=== PATIENT | male | born 1975 | race Hispanic/Latino ===

== ENCOUNTER 2018-09-27 17:57 | Observation (INO) | payer OTHER, SELFPAY ==
[2018-09-27 18:49] LABS: Potassium 3.9 mmol/L (3.5-5.1)
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
[2018-09-27] MEDS ORDERED: GLUCAGON 1 MG/VIAL IM PRN (19:12)
[2018-09-27] MEDS ORDERED: D50W 25 GM/50 ML SYRINGE IV PRN (19:12)
[2018-09-27] MEDS ORDERED: ONDANSETRON 4 MG/2 ML VIAL IV PRN (19:12)
[2018-09-27] MEDS ORDERED: ACETAMINOPHEN 500 MG TAB PO PRN (19:12)
[2018-09-27] MEDS ORDERED: MORPHINE 4 MG/ML SYR IV PRN (19:12)
--- NOTE | 2018-09-27 19:59 | RAD REPORT ---
EXAM DESCRIPTION: RAD - Femur Right - 09/27/2018 7:49 pm CLINICAL HISTORY: Right leg pain FINDINGS: No acute fracture is seen. Intramedullary lizbeth and compression screws affix old fractures.
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
[2018-09-27] MEDS ORDERED: MORPHINE 4 MG/ML SYR ONE (20:52)
[2018-09-27] MEDS: INSULIN -REGULAR HUMAN 50 UNIT/0.5 ML ML SQ SCH (21:00)
[2018-09-27] MEDS ORDERED: HYDROMORPHONE HCL 1 MG/ML INJ IV ONE (22:42)
[2018-09-28] MEDS ORDERED: HYDROMORPHONE HCL 1 MG/ML INJ IV ONE (03:48)
[2018-09-28 05:55] LABS: Potassium 4.1 mmol/L (3.5-5.1)
[2018-09-28] MEDS ORDERED: HYDROMORPHONE HCL 1 MG/ML INJ IV PRN (06:00)
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
[2018-09-28] MEDS: INSULIN -REGULAR HUMAN 50 UNIT/0.5 ML ML SQ SCH ×4 (07:30→21:13)
[2018-09-28] MEDS ORDERED: hydroCHLOROthiazide 25 MG TAB PO SCH ×2 (09:00)
[2018-09-28] MEDS ORDERED: HOME MED 1 EA UNK (Lisinopril/Hydrochlorothiazide [Zestoretic 20-25 Mg Tablet] 1 EACH) PO SCH (09:00)
[2018-09-28] MEDS: HOME MED 1 EA UNK (Dapagliflozin Propanediol [Farxiga] 10 MG) PO SCH (09:00)
[2018-09-28] MEDS ORDERED: CODEINE 30MG/APAP 300MG TAB PO PRN (09:22)
[2018-09-28] MEDS: GLIMEPIRIDE 2 MG TABLET PO SCH ×2 (09:39→18:04)
[2018-09-28] MEDS: LISINOPRIL 20 MG TAB PO SCH (09:39)
[2018-09-28] MEDS: hydroCHLOROthiazide 25 MG TAB PO SCH (09:39)
[2018-09-28] MEDS: ATENOLOL 50 MG TAB PO SCH (09:41)
[2018-09-28] MEDS: HYDROMORPHONE HCL 1 MG/ML INJ IV PRN ×4 (10:50→22:02)
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
[2018-09-29] MEDS: HYDROMORPHONE HCL 1 MG/ML INJ IV PRN ×6 (01:13→20:18)
[2018-09-29 07:04] LABS: Absolute Lymphocytes (CBC) 1.3 K/uL (0.7-4.9); Absolute Monocytes 0.6 K/uL (0.1-1.3); Absolute Neutrophil 4.1 K/uL (1.8-8.0); Basophils % 0.7 % (0-1.3); Eosinophils % 1.4 % (0-4.4); Hematocrit 41.4 % (39.6-49.0); Lymphocytes % 21.2 % (15.3-44.8); MPV 8.7 fL (7.6-11.3); Monocytes % 9.5 % (3.3-12.3)
[2018-09-29 07:18] LABS: ALT/SGPT 27 U/L (12-78); AST/SGOT 34 U/L (15-37); Albumin 3.5 g/dL (3.4-5.0); Alkaline Phosphatase 59 U/L (45-117); BUN Blood Urea Nitrogen 20 mg/dL (7-18); Bicarbonate 28 mmol/L (21-32); Bilirubin Total 0.5 mg/dL (0.2-1.0); Glucose Level 119 mg/dL (74-106); Magnesium 2.2 mg/dL (1.8-2.4); Phosphorus 3.5 mg/dL (2.5-4.9); Potassium 4.1 mmol/L (3.5-5.1); Protein, Total 6.9 g/dL (6.4-8.2); Sodium Level 137 mmol/L (136-145); Troponin I < 0.02 ng/mL (0.0-0.045)
[2018-09-29] MEDS: INSULIN -REGULAR HUMAN 50 UNIT/0.5 ML ML SQ SCH ×4 (07:30→20:19)
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
[2018-09-29] MEDS: GLIMEPIRIDE 2 MG TABLET PO SCH ×2 (08:20→16:50)
[2018-09-29] MEDS: hydroCHLOROthiazide 25 MG TAB PO SCH (08:22)
[2018-09-29] MEDS: ATENOLOL 50 MG TAB PO SCH (08:22)
[2018-09-29] MEDS: LISINOPRIL 20 MG TAB PO SCH (08:22)
[2018-09-29] MEDS: HOME MED 1 EA UNK (Dapagliflozin Propanediol [Farxiga] 10 MG) PO SCH (08:23)
--- NOTE | 2018-09-29 08:50 | RAD REPORT ---
EXAM DESCRIPTION: Sabrina Single View09/29/2018 6:30 am CLINICAL HISTORY: Chest pain COMPARISON: September 27 FINDINGS: An area of subsegmental atelectasis is present within the left base. The right lung appear s clear. The heart is normal size
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
--- NOTE | 2018-09-29 16:12 | RAD REPORT ---
EXAM DESCRIPTION: RAD - Shoulder Right 2 View - 09/29/2018 3:58 pm CLINICAL HISTORY: Right shoulder pain FINDINGS: The distal right clavicle is elevated. The right acromioclavicular and coracoclavicular sp aces are widened. This is consistent with ligamentous injuries. The age is indeterminate and should b e correlated clinically No fracture is seen
[2018-09-29 21:30] VITALS: O2SAT 96
[2018-09-30] MEDS: HYDROMORPHONE HCL 1 MG/ML INJ IV PRN ×4 (00:05→10:20)
[2018-09-30] MEDS: INSULIN -REGULAR HUMAN 50 UNIT/0.5 ML ML SQ SCH ×2 (07:30→11:30)
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
[2018-09-30] MEDS: HOME MED 1 EA UNK (Dapagliflozin Propanediol [Farxiga] 10 MG) PO SCH (09:00)
[2018-09-30] MEDS: ATENOLOL 50 MG TAB PO SCH (09:10)
[2018-09-30] MEDS: GLIMEPIRIDE 2 MG TABLET PO SCH (09:11)
[2018-09-30] MEDS: hydroCHLOROthiazide 25 MG TAB PO SCH (09:11)
[2018-09-30] MEDS: LISINOPRIL 20 MG TAB PO SCH (09:12)
[2018-09-30 12:52] VITALS: BP 111/55; TEMP 98.1
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
== END 2018-09-30 13:00 | disposition home or self-care (01) ==
LOC: ER 17:57 → ERHOLD 19:19 → 4TH 20:16
PROVIDERS: ADMIT Surgery; ATTEND Surgery
DX: S49.81XA Other specified injuries of right shoulder and upper arm, initial encounter (principal); S40.012A Contusion of left shoulder, initial encounter; S20.219A Contusion of unspecified front wall of thorax, initial encounter; S30.1XXA Contusion of abdominal wall, initial encounter; M79.651 Pain in right thigh; V69.88XA Occupant (driver) (passenger) of heavy transport vehicle injured in other specified transport accidents, initial encounter; Y92.410 Unspecified street and highway as the place of occurrence of the external cause; E11.9 Type 2 diabetes mellitus without complications; I10 Essential (primary) hypertension
CPT/HCPCS: 36415; 70450; 71045; 71260; 72125; 74177; 80048; 80053; 82962; 83735; 84100; 84484; 85025; 86850; 86900; 86901; 97116; 97163; 97530; G0378; J1170; Q9967

== ENCOUNTER 2024-09-27 13:45 | Observation (INO) | payer BC ==
[2024-09-27] MEDS ORDERED: NA CHLORIDE 0.9% 2,000 ML ONE (13:49)
[2024-09-27 14:33] LABS: Absolute Lymphocytes (CBC) 0.4 K/uL (0.7-4.9); Absolute Monocytes 0.8 K/uL (0.1-1.3); Absolute Neutrophil 6.7 K/uL (1.8-8.0); Basophils % 0.5 % (0-1.3); Eosinophils % 0.4 % (0-4.4); Hematocrit 43.3 % (39.6-49.0); Hemoglobin 14.8 g/dL (13.6-17.9); Lymphocytes % 4.7 % (15.3-44.8); MCH 27.5 pg (27.0-35.0); MCHC 34.2 g/dL (32.0-36.0); MCV 80.6 fL (80-100); Monocytes % 9.6 % (3.3-12.3); Neutrophils % 84.8 % (41.7-73.7); Platelets 199 thou/uL (152-406); RBC Red Blood Cell Count 5.37 M/uL (4.33-5.43); Red Cell Distribution Width 14.8 % (12.1-15.2)
[2024-09-27 14:48] LABS: PT Prothrombin Time 12.8 SECONDS (9.4-12.5); Protime INR 1.22
[2024-09-27 14:49] LABS: Albumin 2.9 g/dL (3.4-5.0); Albumin/Globulin Ratio 0.6 (1.1-1.8); Bilirubin Total 0.8 mg/dL (0.2-1.0); Globulin 4.7 g/dL (2.3-3.5); Protein, Total 7.6 g/dL (6.4-8.2)
--- NOTE | 2024-09-27 15:03 | RAD REPORT ---
EXAM: Chest Single View HISTORY: hypotension COMPARISON: 09/29/2018 FINDINGS: LUNGS/PLEURA: The lungs are clear. No pleural effusions or pneumothorax. No pulmonary edema. MEDIASTINUM: The mediastinal silhouette is within normal limits. CARDIAC: The cardiac silhouette is within normal limits. UPPER ABDOMEN: No significant abnormality. BONES: No acute abnormality. LINES/TUBES/OTHER: N/A IMPRESSION: No evidence of acute cardiopulmonary disease.
--- NOTE | 2024-09-27 15:44 | RAD REPORT ---
EXAM: Angio Aorta For Dissection CLINICAL INDICATION: Male, 49 years back pain, hypotension TECHNIQUE: CTA of the aorta was obtained including the chest, abdomen and pelvis, with IV contrast, a s per department protocol. Axial, sagittal and coronal reconstructions were obtained. Post-processing was applied at the acquisition scanner with concurrent physician supervision which in cludes 3D reconstructions, MIPs, volume rendered images and/or shaded surface rendering. One or more of the following dose reduction techniques were used: Automated exposure control, adjustment of the mA and/or kV according to the patient size, and/or iterative reconstruction. Unless otherwise specified, incidental findings do not require dedicated imaging follow-up. [id number]. COMPARISON: No prior exam. FINDINGS: Chest: LOWER NECK: Visualized thyroid gland and soft tissues are normal. LUNGS AND AIRWAYS: Airways are clear. No evidence of airspace or interstitial process.No suspicious a nd/or stable pulmonary nodules. PLEURA: No pleural effusion. No pneumothorax. Hemidiaphragms are normally positioned. MEDIASTINUM AND LYMPH NODES: No mediastinal mass or fluid collection. Normal size mediastinal, hilar, and axillary lymph nodes. THORACIC AORTA: No thoracic aortic aneurysm. PULMONARY ARTERIES: Caliber is within normal limits. HEART: Normal heart size. No coronary calcifications.Trace pericardial effusion. Abdomen/Pelvis UPPER GI: No significant abnormality. LIVER: Hepatomegaly with steatosis. GALLBLADDER/BILE DUCTS: No biliary ductal dilatation.? PANCREAS: No mass, ductal dilation, or lizz-pancreatic fluid. SPLEEN: Unremarkable. ADRENALS: No adrenal masses. KIDNEYS AND URETERS: Normal size and contour. No hydronephrosis. ABDOMINAL AORTA AND OTHER VESSELS: Normal caliber aorta and IVC. IVC filter. PERITONEUM: No abnormal free fluid. No free air. LYMPH NODES: No pathologic lymphadenopathy. ABDOMINAL WALL: Right lateral abdominal wall hernia containing portions of the colon. No complicating features. . SMALL BOWEL/COLON: Small bowel has normal course and caliber. No colonic wall thickening or pericolon ic inflammatory changes.Normal appendix. URINARY BLADDER: Underdistended but grossly unremarkable. REPRODUCTIVE ORGANS: No pathologic process. MUSCULOSKELETAL: Multilevel degenerative changes in the spine. No acute fracture. Grade 2 anterolisth esis of L5 on S1. Bilateral pars defects. Intramedullary lizbeth and screw in the right femur. Pubic symphysis plate and screw fixation. Left-sided SI joint screw. Remote rib fractures. ADDITIONAL FINDINGS: None. IMPRESSION: No aortic aneurysm or dissection. No acute abnormalities in the chest, abdomen, or pelvis. Incidental findings as noted above.
--- NOTE | 2024-09-27 15:57 | ER ---
Nurse's Notes [facility] Name: Ye Barajas Age: 49 yrs Sex: Male : 1975 Arrival Date: 09/27/2024 Time: 13:45 Bed 3 Private MD: Diagnosis: Hypotension, unspecified Presentation: 09/27 13:46 Chief complaint: EMS states: was transported from wound healing for low BP. Coronavirus iw screen: At this time, the client does not indicate any symptoms associated with coronavirus-19. Ebola Screen: No symptoms or risks identified at this time. Initial Sepsis Screen: Does the patient meet any 2 criteria? Altered Mental Status. Does the patient have a suspected source of infection? No. Patient's initial sepsis screen is negative. Risk Assessment: Do you want to hurt yourself or someone else? Patient reports no desire to harm self or others. Onset of symptoms was September 27, 2024. 13:46 Method Of Arrival: Wheelchair iw 13:46 Acuity: SEYMOUR 2 iw Triage Assessment: 16:43 General: Appears in no apparent distress. Behavior is calm, cooperative. iw Historical: - Allergies: 13:54 No Known Allergies; ss - PMHx: 13:47 Diabetes; Hypertension; iw - Family history:: not pertinent. - Hospitalizations: : No recent hospitalization is reported. Screenin:28 [facility] ED Fall Risk Assessment (Adult) History of falling in the last 3 months, iw including since admission No falls in past 3 months (0 pts) Confusion or Disorientation Yes (5 pts) Intoxicated or Sedated No (0 pts) Impaired Gait No (0 pts) Mobility Assist Device Used No (0 pt) Altered Elimination No (0 pt) Score/Fall Risk Level 3 or more points = High Risk Oriented to surroundings, Maintained a safe environment, Hourly rounding (assess needs \T\ fall precautionary measures) done. Abuse screen: Denies threats or abuse. Nutritional screening: No deficits noted. Tuberculosis screening: No symptoms or risk factors identified. Assessment: 14:17 Reassessment: Patient appears in no apparent distress at this time. iw 14:28 Reassessment: pt on cell phone texting. iw Vital Signs: 13:47 BP 79 / 49; Pulse 74; Resp 14; Pulse Ox 96% on R/A; iw 13:48 Weight 149.69 kg; Height 6 ft. 3 in. ; ss 13:56 Temp 97.7(O); ss 14:16 BP 92 / 52; Pulse 73; Resp 17; Temp 97.9; Pulse Ox 96% on R/A; zm 14:39 BP 103 / 55; Pulse 72; Resp 16; Pulse Ox 100% on R/A; iw 13:48 Body Mass Index 41.25 (149.69 kg, 190.5 cm) ED Course: 13:46 Patient arrived in ED. iw 13:47 Tashi Orozco MD is Attending Physician. rn 13:47 Triage completed. iw 13:50 First set of blood cultures drawn by me. zm 13:53 Xin Valdez, BRITT is Primary Nurse. iw 14:05 Initial lab(s) drawn, by me, sent to lab. Inserted saline lock: 18 gauge in right zm wrist, using aseptic technique. Blood collected. Flushed with 10 mL NS. 14:05 Second set of blood cultures drawn by me. zm 14:13 Blood Culture Adult (2) Sent. zm 14:13 CBC with Diff Sent. zm 14:13 CMP Sent. zm 14:13 Lactate w/ 2H reflex if indic. Sent. zm 14:13 Protime (+inr) Sent. zm 14:13 Ptt, Activated Sent. zm 14:17 Patient has correct armband on for positive identification. Bed in low position. Side iw rails up X2. 14:43 Chest Single View XRAY In Process Unspecified. EDMS 15:26 CT Aorta for Dissection In Process Unspecified. EDMS 15:56 Maren Butts MD is Hospitalizing Provider. rn Administered Medications: 14:10 Drug: NS 0.9% IV 1000 ml IV at 1000 ml once; to be given as a bolus over 60 minutes iw Route: IV; Rate: 1000 ml; Site: right wrist; 15:15 Follow up: IV Status: Completed infusion iw 15:03 Drug: NS 0.9% IV 1000 ml IV at 1000 ml once; to be given as a bolus over 60 minutes iw Route: IV; Rate: 1000 ml; Site: right wrist; 16:10 Follow up: IV Status: Completed infusion iw Medication: 14:29 VIS not applicable for this client. iw Point of Care Testing: Blood Glucose: 13:54 Blood Glucose: 240 mg/dL; iw Ranges: Outcome: 15:56 Decision to Hospitalize by Provider. rn 17:33 Patient left the ED. eb Signatures: Dispatcher [employer] Xin Moreira RN Tashi Hameed MD MD rn Blanchard, Shelby, RN RN ss Botello, Elizabeth eb Martinez, Zaina zm
--- NOTE | 2024-09-27 15:57 | EDPHYS ---
Physician Documentation [facility] Name: Ye Barajas Age: 49 yrs Sex: Male : 1975 Arrival Date: 09/27/2024 Time: 13:45 Bed 3 Private MD: ED Physician Tashi Orozco HPI: 09/27 14:35 This 49 yrs old Male presents to ER via Wheelchair with complaints of Near rn Syncope. 14:35 The patient has experienced near-syncope. Onset: The symptoms/episode began/occurred rn today. Associated injury: The patient did not suffer any apparent associated injury. Current symptoms: Generalized weakness. The patient has not experienced similar symptoms in the past. Patient reports near syncopal episode, was here for wound care evaluation, sent by Dr. Caruso after noted to be hypotensive and diaphoretic. Patient reports has been having low back pain for 2 weeks now without focal trauma or fall. No abdominal pain. No vomiting or diarrhea. No chest pain or shortness of breath. No fever. Denies IV drug use. Does report constipation and decrease in urination.. Historical: - Allergies: 13:54 No Known Allergies; ss - PMHx: 13:47 Diabetes; Hypertension; iw - Family history:: not pertinent. - Hospitalizations: : No recent hospitalization is reported. ROS: 14:35 Constitutional: Negative for fever, chills, and weight loss, Cardiovascular: Negative rn for chest pain, palpitations, and edema, Respiratory: Negative for shortness of breath, cough, wheezing, and pleuritic chest pain, Abdomen/GI: Negative for abdominal pain, positive for constipation Back: Positive for back pain : Negative for injury, bleeding, discharge, and swelling, MS/Extremity: Negative for injury and deformity, Skin: Negative for injury, rash, and discoloration, Neuro: Positive for generalized weakness and malaise Exam: 14:35 Constitutional: This is a well developed, well nourished patient who is awake, slow to rn respond and diaphoretic ENT: Dry mucous membranes Cardiovascular: Regular rate and rhythm. No pulse deficits. Respiratory: No increased work of breathing, no retractions or nasal flaring. Abdomen/GI: Soft, non-tender, no masses Back: No spinal tenderness Skin: No cyanosis MS/ Extremity: Pulses equal, no cyanosis Neuro: Awake and alert, GCS 15, equal strength throughout, normal sensation Vital Signs: 13:47 BP 79 / 49; Pulse 74; Resp 14; Pulse Ox 96% on R/A; iw 13:48 Weight 149.69 kg; Height 6 ft. 3 in. ; ss 13:56 Temp 97.7(O); ss 14:16 BP 92 / 52; Pulse 73; Resp 17; Temp 97.9; Pulse Ox 96% on R/A; zm 14:39 BP 103 / 55; Pulse 72; Resp 16; Pulse Ox 100% on R/A; iw 13:48 Body Mass Index 41.25 (149.69 kg, 190.5 cm) ss MDM: 13:47 Medical Screening Exam initiated rn 15:53 Differential Diagnosis: aortic aneurysm, cardiac arrhythmia, idiopathic syncope, rn vasovagal episode, Dehydration, DKA, hyperglycemia, medication side effect. Data reviewed: vital signs, nurses notes, lab test result(s), EKG, radiologic studies, CT scan, plain films, and as a result, I will admit patient. Consideration of Admission/Observation Patient was admitted/placed on observation. Escalation of care including admission/observation considered. Care significantly affected by the following chronic conditions: Diabetes, Hypertension. Counseling: I had a detailed discussion with the patient and/or guardian regarding the historical points, exam findings, and any diagnostic results supporting the discharge/admit diagnosis, lab results, radiology results, the need for further work-up and treatment in the hospital. Response to treatment: the patient's symptoms have mildly improved after treatment, and as a result, I will admit patient. ED course: I personally spent 35 minutes engaged in work directly related to the individual patient's care. This does not include any time spent performing procedures. The patient has been deemed critically ill because of hypotension requiring fluid resuscitation, as well as organization of admission to hospital. 09/27 13:48 Order name: Blood Culture Adult (2) rn 09/27 13:48 Order name: CBC with Diff; Complete Time: 14:35 rn 09/27 13:48 Order name: CMP; Complete Time: 15:00 rn 09/27 13:48 Order name: Lactate w/ 2H reflex if indic.; Complete Time: 15:00 rn 09/27 13:48 Order name: Protime (+inr); Complete Time: 15:00 rn 09/27 13:48 Order name: Ptt, Activated; Complete Time: 15:00 rn 09/27 13:48 Order name: Urinalysis w/ reflexes rn 09/27 13:53 Order name: SARS RAPID rn 09/27 13:53 Order name: Flu rn 09/27 16:12 Order name: Basic Metabolic Panel EDMS 09/27 16:12 Order name: Basic Metabolic Panel EDMS 09/27 16:12 Order name: Basic Metabolic Panel EDMS 09/27 16:12 Order name: Basic Metabolic Panel EDMS 09/27 16:12 Order name: Basic Metabolic Panel EDMS 09/27 16:12 Order name: Basic Metabolic Panel EDMS 09/27 16:12 Order name: Basic Metabolic Panel EDMS 09/27 16:12 Order name: Basic Metabolic Panel EDMS 09/27 16:12 Order name: CBC with Automated Diff EDMS 09/27 16:12 Order name: CBC with Automated Diff EDMS 09/27 16:12 Order name: CBC with Automated Diff EDMS 09/27 16:12 Order name: CBC with Automated Diff EDMS 09/27 16:12 Order name: CBC with Automated Diff EDMS 09/27 16:12 Order name: CBC with Automated Diff EDMS 09/27 16:12 Order name: CBC with Automated Diff EDMS 09/27 16:12 Order name: CBC with Automated Diff EDMS 09/27 16:12 Order name: Magnesium EDMS 09/27 16:12 Order name: Magnesium EDMS 09/27 16:12 Order name: Magnesium EDMS 09/27 16:12 Order name: Magnesium EDMS 09/27 16:12 Order name: Magnesium EDMS 09/27 16:12 Order name: Magnesium EDMS 09/27 16:12 Order name: Magnesium EDMS 09/27 16:12 Order name: Magnesium EDMS 09/27 16:58 Order name: Glucose, Ancillary Testing EDMS 09/27 13:48 Order name: Chest Single View XRAY; Complete Time: 15:45 rn 09/27 13:53 Order name: CT Aorta for Dissection; Complete Time: 15:45 rn 09/27 13:48 Order name: EKG; Complete Time: 13:48 rn 09/27 13:48 Order name: Accucheck; Complete Time: 14:13 rn 09/27 13:48 Order name: Cardiac monitoring; Complete Time: 14:13 rn 09/27 13:48 Order name: EKG - Nurse/Tech; Complete Time: 14:13 rn 09/27 13:48 Order name: IV Saline Lock - Large Bore; Complete Time: 14:12 rn 09/27 13:48 Order name: Labs collected and sent; Complete Time: 14:12 rn 09/27 13:48 Order name: O2 Per Protocol; Complete Time: 14:13 rn 09/27 13:48 Order name: O2 Sat Monitoring; Complete Time: 14:13 rn 09/27 13:48 Order name: Vital Signs; Complete Time: 14:13 rn Administered Medications: 14:10 Drug: NS 0.9% IV 1000 ml IV at 1000 ml once; to be given as a bolus over 60 minutes iw Route: IV; Rate: 1000 ml; Site: right wrist; 15:15 Follow up: IV Status: Completed infusion iw 15:03 Drug: NS 0.9% IV 1000 ml IV at 1000 ml once; to be given as a bolus over 60 minutes iw Route: IV; Rate: 1000 ml; Site: right wrist; 16:10 Follow up: IV Status: Completed infusion iw Point of Care Testing: Blood Glucose: 13:54 Blood Glucose: 240 mg/dL; iw Ranges: Critical Glucose Levels:Adult <50 mg/dl or >400 mg/dl <40 mg/dl or >180 mg/dl Disposition Summary: 09/27/24 15:56 Hospitalization Ordered Notes: Hospitalization Status: Inpatient Admission rn Provider: Maren Butts rn Location: Telemetry/[facility] (Inpatient) rn Condition: Stable rn Problem: new rn Symptoms: have improved rn Bed/Room Type: Standard rn Room Assignment: 411(09/27/24 16:24) emeterio Diagnosis - Hypotension, unspecified rn Forms: - Medication Reconciliation Form rn - SBAR form rn - 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 Total time: 35 minutes rn Signatures: Dispatcher [employer] Xin Moreira RN Tashi Hameed MD MD rn Blanchard, Shelby RN Ye Garner, RN RN emeterio Corrections: (The following items were deleted from the chart) 16:24 15:56 rn emeterio
[2024-09-27 16:07] LABS: SARS-CoV-2 Antigen CONTROL BLUE LINE VIS/BG OK; SARS-CoV-2 Antigen Rapid Res Negative (Negative)
[2024-09-27] MEDS ORDERED: ACETAMINOPHEN 500 MG TAB PO PRN ×2 (16:08)
[2024-09-27] MEDS ORDERED: ONDANSETRON 4 MG/2 ML VIAL IV PRN (16:08)
[2024-09-27] MEDS ORDERED: GLUCAGON 1 MG/VIAL IM PRN ×2 (16:21)
[2024-09-27] MEDS ORDERED: D10W 125 ML IV PRN ×2 (16:21)
[2024-09-27] MEDS: INSULIN REGULAR (HUMAN) 100 UNIT/ML SQ SCH (16:30)
[2024-09-27 17:38] VITALS: BMI 5845.0
--- NOTE | 2024-09-27 17:39 | P.HP ---
Certification for Inpatient Patient admitted to: Observation With expected LOS: <2 Midnights Practitioner: I am a practitioner with admitting privileges, knowledge of patient current condition, hospital course, and medical plan of care. Services: Services provided to patient in accordance with Admission requirements found in Title 42 Section 412.3 of the Code of Federal Regulations Patient History Date of Service: 09/27/24 Reason for admission: Dizziness History of Present Illness: 49-year-old male with history of type 2 diabetes, essential hypertension, chronic back pain, who was seen at the wound care clinic and noted to be dizzy and diaphoretic so sent to the ER for evaluation. Per patient, he had been having severe back pain for the past 3 days so has been mostly in bed. Upon going to the wound care clinic, he was feeling dizzy while ambulating so at the clinic was in a wheelchair and received wound care on the left toe. During wound care he was still feeling diaphoretic and dizzy so was sent to the ER. No complaints currently. Of note, his SBP was in the 80s to 90s at the wound care clinic. Patient currently asymptomatic while lying down, has no complaints. Allergies No Known Allergies Allergy (Unverified 09/27/18 20:05) Home medications list reviewed: Yes Home Medications: Dapagliflozin Propanediol [Farxiga] 10 mg PO DAILY 09/27/18 Glimepiride 4 mg PO BIDWM 09/27/18 Lisinopril/Hydrochlorothiazide [Zestoretic 20-25 mg Tablet] 1 each PO DAILY 09/27/18 Metformin HCl 1,000 mg PO BIDWM 09/27/18 atenoloL [Atenolol] 100 mg PO DAILY 09/27/18 - Past Medical/Surgical History Diabetic: Yes -: hypertension -: niddm -: femur fracture and repair - Social History Alcohol use: No CD- Drugs: No Caffeine use: Yes Review of Systems 10-point ROS is otherwise unremarkable Physical Examination - Physical Exam General: Alert, In no apparent distress, Oriented x3 HEENT: Atraumatic, Normocephalic Neck: Supple, 2+ carotid pulse no bruit Respiratory: Clear to auscultation bilaterally Cardiovascular: No edema Gastrointestinal: Normal bowel sounds, Soft and benign, Non-distended Musculoskeletal: No clubbing, No swelling, No erythema Neurological: Normal gait, Normal speech, Normal strength at 5/5 x4 extr - Studies Laboratory Data (last 24 hrs) 09/27/24 09/27/24 09/27/24 14:05 14:05 14:05 WBC 7.80 Hgb 14.8 Hct 43.3 Plt Count 199 PT 12.8 H INR 1.22 APTT 34.0 Sodium 133 L Potassium 4.0 BUN 35 H Creatinine 1.52 H Glucose 239 H Total Bilirubin 0.8 AST 53 H ALT 66 H Alkaline Phosphatase 101 Microbiology Data (last 24 hrs): 09/27/24 15:30 Nasopharnyx Influenza Type A Antigen Screen - Final 09/27/24 15:30 Nasopharnyx Influenza Type B Antigen Screen - Final Assessment and Plan - Plan 1. Dizziness, presyncope, secondary to orthostasis -Per patient, has been bedbound for the past 3 days due to back pain and with limited p.o. intake -At the wound care clinic today, also noted to be hypotensive with SBP in the 90s -Monitor on telemetry -On IV fluids -Check orthostatic vital signs -If symptoms improve tomorrow, and no arrhythmia noted on telemetry, will likely discharge 2. BRANDY secondary to prerenal azotemia -Creatinine currently at 1.5 -On IV fluids 3. Type 2 diabetes -Sliding scale insulin 4. DVT prophylaxis -Subcu Lovenox 5. Disposition: Likely discharge home tomorrow if vital stable and no arrhythmia noted on telemetry Patient is full code - Advance Directives Does patient have a Living Will: No Does patient have a Durable POA for Healthcare: No
[2024-09-27] MEDS: NA CHLORIDE 0.9% 1,000 ML IV SCH (17:51)
[2024-09-27 21:12] VITALS: O2SAT 96
[2024-09-27] MEDS ORDERED: HYDROMORPHONE HCL 1 MG/ML INJ IV PRN (22:15)
[2024-09-27] MEDS: HYDROMORPHONE HCL 1 MG/ML INJ IV PRN (22:20)
[2024-09-27] MEDS: MELATONIN 3 MG TABLET PO SCH (22:20)
[2024-09-27 22:55] LABS: Specific Gravity > 1.030 (1.005-1.030); Sqamous Epithelial None Seen /HPF (None Seen); Urine Bacteria None Seen /HPF (<20); Urine Bilirubin NEGATIVE (Negative); Urine Blood Trace (Negative); Urine Clarity Clear (Clear); Urine Color Light-Yellow (Yellow); Urine Culture Reflex Order NOT NEEDED; Urine Glucose 4+ (Over) (Negative); Urine Ketones TRACE (Negative); Urine Microscopic Reflex YN ORDER UMIC; Urine Nitrite NEGATIVE (Negative); Urine Protein 1+ (Negative); Urine RBC <5 /HPF (None Seen); Urine Urobilinogen 1+ (Normal); Urine WBC <5 /HPF (<5)
[2024-09-28] MEDS: CEFTRIAXONE 2,000 MG in NA CHLORIDE 0.9% 100 ML IV SCH (05:29)
[2024-09-28 06:36] LABS: Absolute Basophils 0.1 K/uL (0-0.5); Absolute Lymphocytes (CBC) 0.5 K/uL (0.7-4.9); Absolute Monocytes 0.7 K/uL (0.1-1.3); Absolute Neutrophil 4.2 K/uL (1.8-8.0); Basophils % 1.2 % (0-1.3); Eosinophils % 0.5 % (0-4.4); Hemoglobin 13.6 g/dL (13.6-17.9); Lymphocytes % 8.3 % (15.3-44.8); MCH 27.7 pg (27.0-35.0); MCHC 33.9 g/dL (32.0-36.0); MCV 81.7 fL (80-100); MPV 8.3 fL (7.6-11.3); Monocytes % 13.3 % (3.3-12.3); Neutrophils % 76.7 % (41.7-73.7); Nucleated Red Blood Cells % 0.2 % (0-0); Platelets 185 thou/uL (152-406); RBC Red Blood Cell Count 4.89 M/uL (4.33-5.43); Red Cell Distribution Width 14.8 % (12.1-15.2)
[2024-09-28 06:44] LABS: Anion Gap 12.8 mEq/L (5.0-15.0); Magnesium 2.4 mg/dL (1.6-2.4); Potassium 3.8 mEq/L (3.5-5.1)
[2024-09-28] MEDS: POTASSIUM CL SA 10 MEQ TAB PO ONE (08:05)
[2024-09-28 10:10] VITALS: BP 133/59; TEMP 98.6
[2024-09-28] MEDS: KETOROLAC 30 MG/ML INJ IV STA (10:10)
--- NOTE | 2024-09-28 15:58 | P.DS ---
Admission Date: 09/27/24 Discharge Date: 09/28/24 Disposition: ROUTINE DISCHARGE Discharge Condition: GOOD Reason for Admission: Dizziness Brief History of Present Illness: 49-year-old male with history of type 2 diabetes, essential hypertension, chronic back pain, who was seen at the wound care clinic and noted to be dizzy and diaphoretic so sent to the ER for evaluation. Per patient, he had been having severe back pain for the past 3 days so has been mostly in bed. Upon going to the wound care clinic, he was feeling dizzy while ambulating so at the clinic was in a wheelchair and received wound care on the left toe. During wound care he was still feeling diaphoretic and dizzy so was sent to the ER. No complaints currently. Of note, his SBP was in the 80s to 90s at the wound care clinic. Patient currently asymptomatic while lying down, has no complaints. Hospital Course: 49-year-old male with history of type 2 diabetes, essential hypertension, chronic back pain, admitted for dizziness related to hypotension from decreased oral intake. On admission, initial creatinine was at 1.5 secondary to prerenal azotemia. Received IV fluids with resolution of BRANDY with creatinine back to 0.9 at time of discharge. Also monitored on telemetry with no events noted on telemetry overnight. Hypotension resolved overnight and patient was then discharged home Vital Signs/Physical Exam: Temp Pulse Resp BP Pulse Ox 98.6 F 79 19 133/59 L 98 09/28/24 08:00 09/28/24 08:00 09/28/24 08:04 09/28/24 08:00 09/28/24 08:04 General: Alert, Oriented x3 HEENT: Atraumatic Neck: Supple Respiratory: Clear to auscultation bilaterally Cardiovascular: No edema Gastrointestinal: Normal bowel sounds Integumentary: No rashes, No breakdown Neurological: Normal gait, Normal speech Laboratory Data at Discharge: WBC 5.50 thou/uL (4.3-10.9) 09/28/24 06:05 Hgb 13.6 g/dL (13.6-17.9) D 09/28/24 06:05 Hct 40.0 % (39.6-49.0) 09/28/24 06:05 Plt Count 185 thou/uL (152-406) 09/28/24 06:05 PT 12.8 SECONDS (9.4-12.5) H 09/27/24 14:05 INR 1.22 09/27/24 14:05 APTT 34.0 SECONDS (24.3-36.9) 09/27/24 14:05 Sodium 131 mEq/L (136-145) L 09/28/24 06:05 Potassium 3.8 mEq/L (3.5-5.1) 09/28/24 06:05 BUN 23 mg/dL (7-18) H 09/28/24 06:05 Creatinine 0.98 mg/dL (0.70-1.30) 09/28/24 06:05 Glucose 114 mg/dL (74-106) H 09/28/24 06:05 Magnesium 2.4 mg/dL (1.6-2.4) 09/28/24 06:05 Total Bilirubin 0.8 mg/dL (0.2-1.0) 09/27/24 14:05 AST 53 U/L (15-37) H 09/27/24 14:05 ALT 66 U/L (16-61) H 09/27/24 14:05 Alkaline Phosphatase 101 U/L (45-117) 09/27/24 14:05 Home Medications: Dapagliflozin Propanediol [Farxiga] 10 mg PO DAILY 09/27/18 Glimepiride 4 mg PO BIDWM 09/27/18 Lisinopril/Hydrochlorothiazide [Zestoretic 20-25 mg Tablet] 25 mg PO DAILY 09/27/18 Metformin HCl 1,000 mg PO BIDWM 09/27/18 atenoloL [Atenolol] 100 mg PO DAILY 09/27/18 Physician Discharge Instructions: Outpatient follow up with PCP within 1-2 weeks post discharge Diet: Regular Activity: Ad james Followup: Bronson BEDOYA,Asaf Tatum DO [Primary Care Provider] -
== END 2024-09-28 11:22 | disposition home or self-care (01) ==
LOC: ER 13:45 → ERHOLD 16:06 → 4TH 16:50
PROVIDERS: ADMIT Internal Medicine; ATTEND Internal Medicine
DX: I95.9 Hypotension, unspecified (principal); R42 Dizziness and giddiness; R79.89 Other specified abnormal findings of blood chemistry; N17.9 Acute kidney failure, unspecified; E11.9 Type 2 diabetes mellitus without complications; I10 Essential (primary) hypertension; G89.29 Other chronic pain; S91.109A Unspecified open wound of unspecified toe(s) without damage to nail, initial encounter; Z11.52 Encounter for screening for COVID-19
CPT/HCPCS: 96361; 87040 ×2; 85025 ×2; 81001; 80048; 36415; 83735; 87205 ×4; 85610; 82947 ×4; 83605; 85730; 80053; 87804 ×2; 71275; 74175; 71045; 96360; 99284; 87811; Q9967; J1171 ×3; J0696; J7030 ×3; 87077; 87186; G0378